=== PATIENT | male | born 2000 | race American Indian/Alaskan Native ===

== ENCOUNTER 2021-10-12 18:02 | Emergency (ER) | payer OTHER ==
[2021-10-12] MEDS ORDERED: ONDANSETRON 4 MG ODT TAB PO ONE (18:32)
[2021-10-12 20:47] VITALS: BP 150/61
[2021-10-12 21:24] LABS: Alanine Aminotransferase 13 units/L (7-56); BUN/Creatinine Ratio 13; Blood Urea Nitrogen 8 mg/dL (9-20)
[2021-10-12 21:25] LABS: Albumin 5.1 g/dL (3.9-5); Hemolysis Index 58
[2021-10-12 21:39] LABS: Hematocrit 47.5 % (35.5-45.6); Hemoglobin 15.7 gm/dl (11.8-15.2); Mean Corpuscular HGB Conc 33 % (32-34); Mean Corpuscular Volume 96 fl (84-94); Platelet Count 284 K/mm3 (140-440); Red Blood Count 4.95 M/mm3 (3.65-5.03); Red Cell Distribution Width 13.5 % (13.2-15.2)
[2021-10-12] MEDS ORDERED: METOCLOPRAMIDE 10 MG/2 ML INJ IV ONE (22:55)
[2021-10-12] MEDS ORDERED: diphenhydrAMINE 50 MG/ML VIAL IV ONE (22:55)
[2021-10-12] MEDS ORDERED: SODIUM CHLORIDE 0.9% 1000 ML 1,000 ML IV ONE (22:55)
[2021-10-12] MEDS ORDERED: KETOROLAC 30 MG/1 ML INJ IV ONE (22:55)
[2021-10-12] MEDS ORDERED: FAMOTIDINE 20 MG/2 ML INJ IV ONE (22:55)
[2021-10-12 23:41] LABS: Bacteria,Urine 1+ /HPF (Negative); Mucus,Urine 2+ /HPF
[2021-10-12 23:55] LABS: Color,Urine Yellow (Yellow)
[2021-10-13 00:04] LABS: Anisocytosis 1+; Basophils % (Manual) 0 % (0.0-1.8); Eosinophils % (Manual) 0 % (0.0-4.3); Platelet Estimate Consistent w Auto; Total Cells Counted 100
--- NOTE | 2021-10-13 06:29 | Emergency Department Report ---
ED N/V/D HPI - General Chief complaint: Abdominal Pain Stated complaint: VOMITING Source: patient Mode of arrival: Ambulatory Limitations: No Limitations - History of Present Illness Initial comments: Patient is a 21-year-old male with no past medical history presents to the ED w ith complaint of acute onset persistent intractable nausea and vomiting for the last 3 days. Patient states that he usually also abuses narcotic opioid medications on the street and suspect that this latest episode may have been related to her chronic recurrent nausea and vomiting as a result of opioid abuse. Patient denies dizziness, syncope, hematemesis, hematochezia, dysuria, urinary frequency and urgency, chest pain, shortness of breath, neck pain, sore throat, headache or neck pain. MD complaint: nausea, vomiting, abdominal pain (EPIGASTRIC PAIN) -: Gradual, days(s) (3) Description of Vomiting: food contents, watery, bilious Description of Diarrhea: other (None) Associated Abdominal Pain: Yes (epigastric ) Location: epigastric Radiation: none Severity: severe Pain Scale: 7 Quality: cramping, sharp Consistency: intermittent Improves with: none Worsens with: eating, vomiting Context: possible food poisoning Associated Symptoms: denies other symptoms, loss of appetite, malaise, nausea/vomiting, weakness. denies: myalgias, chest pain, cough, diaphoresis, fever/chills, headaches, rash, dysuria, shortness of breath, syncope - Related Data Previous Rx's Medication Instructions Recorded Last Taken Type Amoxicillin [Trimox CAP] 500 mg PO BID #20 capsule 09/20/19 Unknown Rx Ibuprofen [Motrin] 800 mg PO Q8HR PRN #30 tablet 09/20/19 Unknown Rx Dicyclomine [Bentyl] 20 mg PO Q6H PRN #30 tablet 07/24/20 Unknown Rx Famotidine [Pepcid] 20 mg PO BID #30 tablet 07/24/20 Unknown Rx Ondansetron [Zofran Odt] 4 mg PO Q6HR PRN #20 tab.rapdis 07/24/20 Unknown Rx Dicyclomine [Bentyl] 20 mg PO Q6H PRN #30 tablet 10/13/21 Unknown Rx Famotidine [Pepcid] 20 mg PO BID #60 tablet 10/13/21 Unknown Rx Ondansetron [Zofran Odt] 4 mg PO Q8HR PRN #20 tab.rapdis 10/13/21 Unknown Rx Allergies Allergy/AdvReac Type Severity Reaction Status Date / Time No Known Allergies Allergy Verified 09/20/19 04:13 ED Review of Systems ROS: Stated complaint: VOMITING Other details as noted in HPI Constitutional: denies: chills, fever Eyes: denies: eye pain, eye discharge, vision change ENT: denies: ear pain, throat pain Respiratory: denies: cough, shortness of breath, wheezing Cardiovascular: denies: chest pain, palpitations Endocrine: no symptoms reported Gastrointestinal: abdominal pain (epigastric ), nausea, vomiting. denies: diarrhea Genitourinary: denies: urgency, dysuria Musculoskeletal: denies: back pain, joint swelling, arthralgia Skin: denies: rash, lesions Neurological: denies: headache, weakness, paresthesias Psychiatric: denies: anxiety, depression Hematological/Lymphatic: denies: easy bleeding, easy bruising ED Past Medical Hx - Past Medical History Previous Medical History?: No Additional medical history: Chronic street opioid drug abuse - Surgical History Past Surgical History?: No - Social History Smoking Status: Current Every Day Smoker Substance Use Type: None - Medications Home Medications: Home Medications Medication Instructions Recorded Confirmed Last Taken Type Amoxicillin [Trimox CAP] 500 mg PO BID #20 capsule 09/20/19 Unknown Rx Ibuprofen [Motrin] 800 mg PO Q8HR PRN #30 tablet 09/20/19 Unknown Rx Dicyclomine [Bentyl] 20 mg PO Q6H PRN #30 tablet 07/24/20 Unknown Rx Famotidine [Pepcid] 20 mg PO BID #30 tablet 07/24/20 Unknown Rx Ondansetron [Zofran Odt] 4 mg PO Q6HR PRN #20 tab.rapdis 07/24/20 Unknown Rx Dicyclomine [Bentyl] 20 mg PO Q6H PRN #30 tablet 10/13/21 Unknown Rx Famotidine [Pepcid] 20 mg PO BID #60 tablet 10/13/21 Unknown Rx Ondansetron [Zofran Odt] 4 mg PO Q8HR PRN #20 tab.rapdis 10/13/21 Unknown Rx ED Physical Exam - General Limitations: No Limitations General appearance: alert, in no apparent distress - Head Head exam: Present: atraumatic, normocephalic, normal inspection - Eye Eye exam: Present: normal appearance, PERRL, EOMI Pupils: Present: normal accommodation - ENT ENT exam: Present: normal exam, normal orophraynx, mucous membranes moist, TM's normal bilaterally, normal external ear exam - Neck Neck exam: Present: normal inspection, full ROM. Absent: tenderness, meningismus - Respiratory Respiratory exam: Present: normal lung sounds bilaterally. Absent: respiratory distress, wheezes, rales, stridor, chest wall tenderness, accessory muscle use, prolonged expiratory - Cardiovascular Cardiovascular Exam: Present: normal rhythm, bradycardia, normal heart sounds. Absent: systolic murmur, diastolic murmur, rubs, gallop - GI/Abdominal GI/Abdominal exam: Present: soft, normal bowel sounds. Absent: tenderness, guarding, rebound - Extremities Exam Extremities exam: Present: normal inspection, full ROM, normal capillary refill - Back Exam Back exam: Present: normal inspection, full ROM. Absent: tenderness, CVA tenderness (R), CVA tenderness (L), muscle spasm, paraspinal tenderness, vertebral tenderness - Neurological Exam Neurological exam: Present: alert, oriented X3, CN II-XII intact, normal gait, r eflexes normal. Absent: abnormal gait - Psychiatric Psychiatric exam: Present: normal affect, normal mood, anxious - Skin Skin exam: Present: warm, dry, intact, normal color. Absent: rash ED Course Vital Signs 10/12/21 10/12/21 18:29 20:46 Temperature 98.0 F 98.4 F Pulse Rate 52 L 60 Respiratory 18 18 Rate Blood Pressure 135/62 150/61 [Left] O2 Sat by Pulse 99 99 Oximetry ED Medical Decision Making - Lab Data Result diagrams: 10/12/21 20:57 10/12/21 19:13 - Medical Decision Making This is 21-year-old male with no past medical history presents to the ED with complaint of acute onset persistent intractable nausea and vomiting for the last 3 days. Patient states that he usually also abuses narcotic opioid medications on the street and suspect that this latest episode may have been related to her chronic recurrent nausea and vomiting as a result of opioid abuse. In the ED, patient is alert and oriented x3 and is not in any distress. Patient is hemodynamically stable. Lab test results were reviewed and are all nonactionable. Patient was treated for pain in the ED, also received antacids and antiemetics.. On reevaluation, patient felt better, patient however eloped from the ED prior to being discharged. - Differential Diagnosis Viral gastroenteritis; opioid abuse; GERD; dehydration; Critical care attestation.: If time is entered above; I have spent that time in minutes in the direct care of this critically ill patient, excluding procedure time. ED Disposition Clinical Impression: Abdominal pain in male, Nausea and vomiting in adult GERD (gastroesophageal reflux disease) Qualifiers: Esophagitis presence: esophagitis presence not specified Qualified Code(s): K21.9 - Gastro-esophageal reflux disease without esophagitis Disposition: LEFT AGAINST MEDICAL ADVICE Is pt being admited?: No Does the pt Need Aspirin: No Condition: Undetermined Instructions: Gastroesophageal Reflux Disease, Adult, [id number], Food Choices for Gastroesophageal Reflux Disease, Adult, [id number], Nausea and Vomiting, Adult, [id number], Abdominal Pain, Adult, [id number] Additional Instructions: All lab test results were reviewed and are all nonactionable. Symptoms are likely due to a viral gastroenteritis or chronic opioid use and abuse. Therefore maintain a clear liquid diet for 12 to 24 hours, take medication as needed for nausea and vomiting and follow-up with your primary care physician in 5 to 7 days for reevaluation or return to the ED immediately if symptoms get worse. Prescriptions: Dicyclomine [Bentyl] 20 mg PO Q6H PRN #30 tablet PRN Reason: abdominal pain Famotidine [Pepcid] 20 mg PO BID #60 tablet Ondansetron [Zofran Odt] 4 mg PO Q8HR PRN #20 tab.rapdis PRN Reason: Nausea Referrals: [facility] [Provider Group] - 3-5 Days Time of Disposition: 02:00 Print Language: SWEDISH
== END 2021-10-13 05:44 | disposition left against medical advice (07) ==
LOC: ED 18:02
DX: K21.9 Gastro-esophageal reflux disease without esophagitis (principal); F17.200 Nicotine dependence, unspecified, uncomplicated; Z79.899 Other long term (current) drug therapy
CPT/HCPCS: 36415; 80053; 81001; 83690; 85007; 85025; 96361; 96374; 96375; 99283; J1200; J1885; J2765; J3490; J7030; Q0162